=== PATIENT | female | born 1975 | race Hispanic/Latino ===

== ENCOUNTER 2020-02-07 07:15 | Day surgery (SDC) | payer OTHER ==
[2020-02-07] MEDS ORDERED: LIDOCAINE 2% MPF 5 ML VIAL ONE (07:32)
[2020-02-07] MEDS ORDERED: MIDAZOLAM HCL 2 MG/2 ML INJ ONE (07:32)
[2020-02-07] MEDS ORDERED: dexAMETHasone 4 MG/ML VIAL ONE (07:32)
[2020-02-07] MEDS ORDERED: propofoL 200 MG/20 ML VIAL IV ONE (07:32)
[2020-02-07] MEDS ORDERED: FENTANYL CITR 100 MCG/2 ML ONE (07:32)
[2020-02-07] MEDS ORDERED: Ringers Lactate 1,000 ML IV ONE (07:59)
[2020-02-07] MEDS ORDERED: CEFAZOLIN/SWI 2gm 2 GM/20 ML SYR ONE (08:03)
[2020-02-07] MEDS ORDERED: NA CHLORIDE 0.9% 50 ML ONE (08:15)
[2020-02-07] MEDS ORDERED: VASOPRESSIN 20 UNIT/ML VIAL ONE (08:16)
[2020-02-07] MEDS ORDERED: ONDANSETRON 4 MG/2 ML VIAL ONE ×2 (09:30→11:12)
[2020-02-07] MEDS ORDERED: CEFAZOLIN/SWI 1gm 1 GM/10 ML SYR ONE (09:32)
[2020-02-07] MEDS ORDERED: KETOROLAC 30 MG/ML INJ ONE (09:58)
[2020-02-07] MEDS: MEPERIDINE HCL 25 MG/ML SYR ONE ×2 (11:01→11:06)
[2020-02-07] MEDS ORDERED: IBUPROFEN 200 MG TAB PO ONE (11:37)
[2020-02-07 12:02] VITALS: TEMP 97.7
--- NOTE | 2020-02-07 12:17 | OP ---
Date of Procedure: 02/07/2020 Surgeon: Alyssa Campbell MD Circular Clerk: Roro Chaudhry. Preoperative Diagnoses: 1.Hysteroscopy, endometrial ablation with NovaSure. 2.Midurethral sling, cystoscopy, and (TVTO). Anesthesia: General endotracheal. Estimated Blood Loss: 100. Specimens: No specimens. Complications: No complications. Drains: Felder catheter and vaginal packing. Condition: Stable. Findings: Endometrial cavity was empty. Endometrium was thickened as this is her first day. No int racavitary distortions. Ablation was done without any problems. Cavity length 5 cm, width 4.4 cm, p ower 121 villagran, and time of ablation 1 minute 40 seconds. On vaginal exam, the patient had a significant anterior apical prolapse BA 0 and point C was -1. Sig nificant urinary incontinence with urine leaking around the Felder. The TVTO was performed without any problems. The patient is a 44-year-old with heavy bleeding and stress urinary incontinence. Her bleeding was e valuated with vaginal ultrasound. She had some fibroids. The endometrial sampling was performed and there was no atypia or malignancy. Discussed about all the different options including levonorgestr el IUD, depot medroxyprogesterone, ablation, hysterectomy. All benefits and risks were discussed, ef ficacy and risks in detail, and the patient wanted to proceed with an endometrial ablation, which is very effective method. She was consented for it, then for stress urinary incontinence. She has sign ificant incontinence using pads and causing distress to her life. This was evaluated clinically. Th e positive cough stress test and a support of the midurethral area. There was no leak found, so hype rmobility noted and she was consented for a sling. Understands bleeding, infection, injury to the manju wel or bladder, urinary retention, catheterization, need for revision, dyspareunia. All these were d iscussed and she was consented. Description Of Procedure: 2 g of Ancef were given, SCDs were placed, and the patient was brought to the OR. She was re-consented in the preop area. Her son was present with her. All questions were a nswered and she was taken back, Ancef given, general anesthesia given, placed in a dorsal lithotomy p osition. Pelvic exam was performed. POP-Q as dictated above. Abdomen, vulva, vagina, and perineum prepped and draped in a sterile fashion. Felder was placed to drain the bladder, retracted superiorly . Speculum placed to expose the cervix. Anterior lip grasped with 2 Allis clamps. Diagnostic SlimL ine hysteroscope was used for hysteroscopy and measurements of the uterine cavity and cervical length were done under direct vision. Once the scope was removed, the NovaSure device was opened up. The cavity length of 5 cm was entered into the generator. Then, after deploying the fan without any prob lems, the width was assessed at 4.4 cm, which later it expanded to 4.5 while I was performing the abl ation, but no alteration was done. Then, cavity integrity test was done and once this was passed, ablation cycle was started and an inte rrupted 1 minute 40 second cycle was performed without any problems. The external os was clamped wit h the help of an Allis clamp in order for us to have a good seal and this worked throughout. After t he ablation was done, the fan was undeployed. The device was removed. Direct hysteroscopy was perfo rmed with a SlimLine hysteroscope. There was excellent ablation effect in the global endometrial cav ity. The scope was removed. Instruments were removed. Attention was directed to the midurethral area. Allis clamps were placed on either side of the midli ne, injected with dilute vasopressin in the center and on both sides. A 1 cm incision was made in th e midurethral slightly more proximal area in the midline with a scalpel with a 15 blade and then diss ection was carried to create tunnels towards the ipsilateral obturator space hugging the inferior pub ic ramus at a 45-degree angle to the horizontal and vertical planes towards the shoulder. Once the o bturator space was entered, the membrane was perforated. The scissors were opened up to enlarge the tract. Similar dissection was performed on the left side without any problems. There was a good ajit unt of bleeding from both sides, mostly appeared to be venous. Then, the wing guide was placed on th e right side. The spike was passed hugging the inferior pubic ramus. The needle was retrieved at le ast 1 cm lateral to the groin fold above the level of the line dropped at the external meatus horizon tally. Similarly spike was placed and passed. The left pass I did not like after entering the obturator spa ce and it did not appear to be hugging the inferior pubic ramus very well, so the spike was removed. Wing guide was replaced again, repositioned, and the spike was passed and tightly turned around the inferior pubic ramus exiting at a point very symmetric to the opposite side. Once the plastic dilato rs were pulled out, the plastic sheaths were held with Kaylyn clamps and tensioning of the midurethral area was performed with the help of Metzenbaum scissors making sure that the sling was not too tight , but not too loose either. The sheaths were pulled out. The mesh was trimmed and very flushed with the skin. There appeared to be a good positioning of the sling. This was irrigated with antibiotic solution. Closure was performed with a 2-0 Vicryl in a continuous running locked fashion at top hyun f and then horizontal mattress fashion in the bottom. The Felder was removed. The cystoscopy with 17-Faroese sheath 30-degree lens was done. Normal saline was used for distention medium. There was excellent ureteric flow from both sides. There was no eddie dence of any foreign body or trauma to the bladder. Bladder appeared to be unremarkable. Scope was removed. Bladder was drained. Felder was replaced and vaginal packing was placed. The suture on the left medial thigh for the exit point of the needle was closed with the help of 3-0 Vicryl simple sti tch and Dermabond was placed on both sites. Instrument, needle, and sponge counts were correct. Celeste erated the procedure well. EBL was 100. She will be transferred to the PACU and then recovered to [facility] recovery room Day Surgery in 2 hours from the time of completion of the procedure. Bladder will b e filled retrograde with 300 mL of normal saline. Felder will be removed and she will be given a void ing trial within an hour. If she passes the voiding trials, we will discharge her home without a cat heter. If she does not, then we will re-catheterize her for a voiding trial in 3 days. No further a ntibiotics were indicated. Vaginal pack will also be removed. She has 1-week followup appointment with me in the office. She was given Toradol at the end of her p rocedure, regular diet, and full activity. SK/MODL Voice ID: [id number] Report ID: [id number]
[2020-02-07 12:47] VITALS: BP 126/72; O2SAT 100
== END 2020-02-07 13:55 | disposition home or self-care (01) ==
LOC: OR 07:15
PROVIDERS: ATTEND Obstetrics & Gynecology
PROC: 0TSD0ZZ Reposition Urethra, Open Approach (ICD-10-PCS; 2020-02-07)
PROC: 0U5B8ZZ Destruction of Endometrium, Via Natural or Artificial Opening Endoscopic (ICD-10-PCS; principal; 2020-02-07 08:30)
DX: N92.0 Excessive and frequent menstruation with regular cycle (principal); N39.3 Stress incontinence (female) (male); D50.9 Iron deficiency anemia, unspecified; Z20.828 Contact with and (suspected) exposure to other viral communicable diseases; Z90.49 Acquired absence of other specified parts of digestive tract; Z82.49 Family history of ischemic heart disease and other diseases of the circulatory system; Z83.3 Family history of diabetes mellitus; Z80.49 Family history of malignant neoplasm of other genital organs; Z80.8 Family history of malignant neoplasm of other organs or systems
CPT/HCPCS: 81025; 58563; 57288; U0002; J2704; J1100; J2250; J3010; J2175; J0690 ×2; J7120; J2405 ×2

== ENCOUNTER 2023-12-22 08:59 | Day surgery (SDC) | payer BC ==
[2023-12-19 12:14] LABS: Absolute Basophils 0.1 K/uL (0-0.5); Absolute Eosinophils 0.3 K/uL (0-0.5); Absolute Lymphocytes (CBC) 1.8 K/uL (0.7-4.9); Absolute Monocytes 0.5 K/uL (0.1-1.3); Absolute Neutrophil 6.1 K/uL (1.8-8.0); Basophils % 0.8 % (0-1.3); Eosinophils % 3.9 % (0-4.4); Hematocrit 40.2 % (36.0-45.0); Hemoglobin 13.3 g/dL (12.0-15.0); Lymphocytes % 20.8 % (15.3-44.8); MCH 30.5 pg (27.0-35.0); MCHC 33.2 g/dL (32.0-36.0); MPV 9.2 fL (7.6-11.3); Monocytes % 5.2 % (3.3-12.3); Neutrophils % 69.3 % (41.7-73.7); Nucleated Red Blood Cells % 0.1 % (0-0); Platelets 232 thou/uL (152-406); RBC Red Blood Cell Count 4.36 M/uL (3.86-4.86); Red Cell Distribution Width 13.6 % (12.1-15.2)
[2023-12-19 12:24] LABS: Specific Gravity 1.019 (1.005-1.030); Sqamous Epithelial <5 /HPF (None Seen); Urine Bacteria <20 /HPF (<20); Urine Bilirubin NEGATIVE (Negative); Urine Blood Negative (Negative); Urine Clarity Turbid (Clear); Urine Color Light-Yellow (Yellow); Urine Culture Reflex Order NOT NEEDED; Urine Glucose NEGATIVE (Negative); Urine Ketones NEGATIVE (Negative); Urine Microscopic Reflex YN ORDER UMIC; Urine Mucus Slight /HPF (None Seen); Urine Nitrite NEGATIVE (Negative); Urine Protein NEGATIVE (Negative); Urine Urobilinogen Normal (Normal); Urine WBC <5 /HPF (<5); Urine pH 6.5 (5.0-7.0)
[2023-12-19 12:26] LABS: Anion Gap 9.4 mEq/L (5.0-15.0)
[2023-12-19 12:29] LABS: Potassium 4.4 mEq/L (3.5-5.1)
[2023-12-22] MEDS: NA CHLORIDE 0.9% 1,000 ML ONE (09:30)
[2023-12-22] MEDS: SCOPOLAMINE HYDROBROMIDE PATCH TD ONE (09:30)
[2023-12-22] MEDS ORDERED: FENTANYL CITR 100 MCG/2 ML ONE (10:11)
[2023-12-22] MEDS ORDERED: ONDANSETRON 4 MG/2 ML VIAL ONE (10:11)
[2023-12-22] MEDS ORDERED: propofoL 200 MG/20 ML VIAL IV ONE (10:11)
[2023-12-22] MEDS ORDERED: dexAMETHasone 10 MG/ML VIAL ONE (10:11)
[2023-12-22] MEDS ORDERED: KETOROLAC 30 MG/ML INJ ONE (10:11)
[2023-12-22] MEDS ORDERED: MIDAZOLAM HCL 2 MG/2 ML INJ ONE (10:12)
[2023-12-22] MEDS ORDERED: LIDOCAINE 2% MPF 5 ML VIAL ONE (10:12)
[2023-12-22] MEDS ORDERED: ROCURONIUM 50 MG/5 ML VIAL IV ONE (10:13)
[2023-12-22] MEDS: CEFAZOLIN SODIUM 2 GM/VIAL ONE (14:58)
[2023-12-22] MEDS ORDERED: LANO/MINERAL OIL/PETRO 3.5 GM ONE (15:13)
[2023-12-22] MEDS ORDERED: NS 0.9% VIAL 20 ML ONE (15:22)
[2023-12-22] MEDS ORDERED: VECURONIUM 10 MG/VIAL IV ONE (15:35)
[2023-12-22] MEDS ORDERED: NS 0.9% VIAL 10 ML ONE (15:35)
[2023-12-22] MEDS: BUPIVACAINE 0.25% PF 30 ML VIAL ONE (15:49)
[2023-12-22] MEDS ORDERED: MEPERIDINE HCL 25 MG/ML SYR ONE (17:21)
[2023-12-22] MEDS ORDERED: NA CHLORIDE 0.9% 1,000 ML ONE (17:58)
[2023-12-22] MEDS: HYDROCODONE/APAP 5/325 MG TAB ONE (19:05)
[2023-12-22 19:19] VITALS: BP 126/76; TEMP 97.1; O2SAT 98
--- NOTE | 2023-12-24 03:12 | OP ---
Date of Procedure: 12/22/2023 Surgeon: Alyssa Campbell MD Software Engineer Sales: Roro Shah. Preoperative Diagnosis: Pelvic pain, history of menorrhagia, status post ablation. Postoperative Diagnosis: Pelvic pain, history of menorrhagia, status post ablation. Procedures Performed: Total laparoscopic hysterectomy, bilateral salpingo-oophorectomy, and cystosco py. Ebl: 50. Anesthesia: General endotracheal. Complications: No complications. Drains: No drains. Condition: Stable. Specimen: Uterus, bilateral tubes and ovaries. Findings: No endometriosis was noted. The uterus had an ablated cavity due to which was difficult t o insert the manipulator at the first run, but once it was adjusted appeared to have fibroids and juliet nomyosis. Slightly enlarged dilated bilateral proximal tubes. The appendix was normal. Cystoscopy showed patent ureteric orifices. No endometriotic implants. Four incisions were made on the abdomen and vaginal cuff closed with 0 PDS sutures x5 to angle simple stitches and 3 [id number] in the center. Good suspension. Indications: The patient is a 48-year-old with family history of uterine and ovarian cancers, 3 hardy rnal aunts with uterine, and maternal aunt with ovarian cancer. Her first genetic test was negative. For heavy period, she underwent an ablation which treated her bleeding. However, her pelvic pain has been incremental progressively. So at this point, she is unable to tolerate this and we evaluated h er with ultrasound for any adnexal masses and it was negative. No infections. Medical versus surgic al treatment were reviewed with the patient, as she has a family history. She was significantly incl ined to proceed with a hysterectomy and removal of tubes and ovaries and she was open to p ost hysterectomy hormonal therapy. She understood the risks and benefits of the hormones and duratio n of use being in a 3 to 5 years or longer based on the side effects. The patient was re-consented in the preoperative area with her by her side, taken back to the OR, placed in supine fashion on the operating table. 2 g of Ancef were given. General anesthesia w as given. Placed in a dorsal lithotomy position using Ismael stirrups. Abdomen prepped with ChloraPr ep. Vulva, vagina, and perineum with Betadine, draped in a sterile fashion. Felder was placed to ruth ann in the bladder and attached to a gravity drainage bag. Speculum placed to expose the cervix. Anteri or lip was grasped with single-tooth tenaculum, dilated to 16-Indonesian and uterine manipulator introduc ed, so I went to the abdominal cavity after this was all draped with incisions as they were going to be described below. The tip of the manipulator did not reach past the lower endometrial canal, so I came back down and re-adjusted it to the top of the fundus and recheck. 1 cm infraumbilical incision was made with a scalpel. There was a small umbilical hernia towards the right of the patient, but it was right and superior to the infraumbilical incision. Incision was ma de with an 11 blade on the fascia, tagged with 0 Vicryl sutures on both sides, peritoneum entered sha rply. Judith introduced. Site of entry was checked and unremarkable after the ablation. Suprapubic 10 port and left and right lower quadrant 5 ports were placed under direct vision. On the upper abd ominal surfaces unremarkable. Appendix appeared to be unremarkable. Patient was placed in significa nt Trendelenburg and pelvic cavity was surveyed. There was no evidence of endometriosis as noted bel ow. The manipulator readjusted and once this was done, I was able to manipulate the uteru s better. Both the ureters were identified from the pelvic brim to the ureteric tunnel and there was no distortion. Colon unremarkable. Hysterectomy was started by taking the LigaSure and opening up the round ligament on the left side. Then, the broad ligament opened up inferiorly to continue the bladder flap and opened up. Similar di ssection was performed approximately towards the mesosalpinx and parallel to the IP ligament. Then a fter identifying the ureter on the medial aspect, incision was made in the peritoneum between the IP and the ureter, and once the pedicle was isolated, taken down with the help of the LigaSure. The pos terior peritoneum here, mesosalpinx taken down with the LigaSure then followed by posterior broad lig ament all the way to the posterior cuff and the ureter were dissected laterally away from the dissect ion. The broad ligament was cauterized and cut to skeletonized the vessels. Vessels were identified. The bladder was dissected inferiorly on the anterior vaginal wall and posteriorly the uterosacral ligame nt was exposed and was cauterized. The uterine vessels were also cauterized and not cut. On the opposite side, round ligament was taken first, then followed by an anterior broad ligament con nected to the bladder flap, dissecting the bladder down inferiorly on the anterior vaginal wall, iden tifying the cup and having at least another 2 cm inferior to it open for suturing. Mesosalpinx dissected in parallel with the IP and a window made between the IP ligament and the urete r from the lateral aspect. Once this was opened up, then I was able to cauterize and cut the pedicle with the LigaSure and posterior broad ligament dissected all the way to the uterosacral ligament and anteriorly and the broad ligament was dissected with the LigaSure. Then, once the vessel s were skeletonized here, the monopolar hook was used on the anterior vaginal wall to enter the vesic ovaginal space and the bladder was dissected inferiorly. Then on both sides of the vessels on the me dial aspects had opened with the monopolar hook to create a space, so I could get around the uterine vessels. The uterine artery and vein were taken down at the level of the internal os. Then, the car dinal ligaments were cauterized and cut with the help of the bipolar cautery as well as the LigaSure. Once the right side was completely cleared up, the left side was taken down as well. The vessels, cardinal ligaments, and posteriorly opening up the cup. Circumferential colpotomy was performed with a monopolar hook blade and the specimen detached and pulled out through the vaginal canal. The ovar ies and tubes were attached to it and intact. The vaginal cuff was thoroughly irrigated and suction and cauterized with the help of the tip of the correct tip bipolar, then vaginal cuff closure was per formed with the help of 0 PDS sutures 2 simple ones at the angles and 3 [id number] in the middl e including the uterosacral ligaments as well as posterior connective tissue anterior vaginal wall __ inside. Thorough irrigation suction performed. Both ureters appeared to have good peristalsis. More hemosta sis cauterized posterior broad ligament on the right side, then I was able to spray the hemostatic po wder Ritika into the lower pelvis just as an appropriate. All the trocars were removed under direct vision. Gas was desufflated. All the umbilical port was t hen removed. The fascia was closed with the help of tagged 0 Vicryl sutures tied to each other and s imple 0 Vicryl stitch at the suprapubic site. All skin incisions closed with interrupted 4-0 Monocry l suture. Vaginal exam was performed after removing the vaginal closure as well as the Felder. Cystoscope 30 de gree lens and a 17-Indonesian sheath were used for cystoscopy through the urethral meatus into the bladde r. Excellent jets of urine from both ureteric orifices. No evidence of any trauma to the bladder. The bladder was then drained and the patient was recovered from anesthesia and taken to the PACU in s table condition. Instrument, needle, and sponge counts x3 were correct at the end of case. The deborah ent tolerated the procedure well. Her with the brief above the procedure later on the teleph one because he was unavailable in the postop or in the waiting area immediately, but his questions an d answers were given to his satisfaction when the phone conversation happened. We will follow up in 1 week on the patient. ANDREW Voice ID: [id number] Report ID: [id number]
== END 2023-12-22 19:35 | disposition home or self-care (01) ==
LOC: OR 08:59
PROVIDERS: ATTEND Obstetrics & Gynecology
PROC: 0UT74ZZ Resection of Bilateral Fallopian Tubes, Percutaneous Endoscopic Approach (ICD-10-PCS; 2023-12-22)
PROC: 0UT24ZZ Resection of Bilateral Ovaries, Percutaneous Endoscopic Approach (ICD-10-PCS; 2023-12-22)
PROC: 0TJB8ZZ Inspection of Bladder, Via Natural or Artificial Opening Endoscopic (ICD-10-PCS; 2023-12-22)
PROC: 0UT94ZZ Resection of Uterus, Percutaneous Endoscopic Approach (ICD-10-PCS; principal; 2023-12-22 10:30)
DX: N92.6 Irregular menstruation, unspecified (principal); R10.2 Pelvic and perineal pain; Z80.41 Family history of malignant neoplasm of ovary; Z80.49 Family history of malignant neoplasm of other genital organs
CPT/HCPCS: 58571; 52000; 85025; 81001; 80048; 36415; 86900; 86850; 81025; 86901; 82947 ×2; 88305; A4216 ×2; J2704; J2001; J2250; J3010; J1100; J2175; J2405; J7030 ×2; 88307